=== PATIENT | female | born 2000 | race Two or more races ===

== ENCOUNTER 2019-04-10 22:34 | Observation (INO) | payer MEDICAID ==
[~2019-04-10] VITALS: Ht 157.5 cm; Wt 80.7 kg
[2019-04-11] MEDS ORDERED: PREN27TA7 OR (15:08)
== END 2019-04-11 01:28 | disposition home or self-care (01) | DRG 566 ==
LOC: LDRP 22:34
PROVIDERS: ADMIT Obstetrics & Gynecology; ATTEND Obstetrics & Gynecology
DX: O62.9 Abnormality of forces of labor, unspecified (principal); Z3A.38 38 weeks gestation of pregnancy
CPT/HCPCS: 59025; 81002; G0378

== ENCOUNTER 2019-04-11 14:16 | Inpatient (IN) | payer MEDICAID ==
[~2019-04-11] VITALS: Ht 157.5 cm; Wt 80.7 kg
[2019-04-11] MEDS ORDERED: LACT. RINGERS/OXYTOCIN 20UNITS 1,000 ML IV SCH ×2 (15:00)
[2019-04-11] MEDS ORDERED: WITCH HAZEL-GLYCERIN PAD TOP PRN (15:00)
[2019-04-11] MEDS ORDERED: NALBUPHINE HCL 10 MG/1ml INJECTION IV PRN (15:00)
[2019-04-11] MEDS ORDERED: DERMOPLAST 60ML BOTTLE TOP PRN (15:00)
[2019-04-11] MEDS ORDERED: TERBUTALINE SULFATE 1 MG/ML 1ML VIAL SC PRN (15:00)
[2019-04-11] MEDS ORDERED: METHYLERGONOVINE MALEATE 0.2 MG/ML AMP IM PRN (15:00)
[2019-04-11] MEDS ORDERED: LACTATED RINGER'S 1,000 ML IV SCH (15:00)
[2019-04-11] MEDS ORDERED: PHISODERM TOP SOLN 240ML BTL TOP PRN (15:00)
[2019-04-11] MEDS ORDERED: CARBOPROST TROMETHAMINE 250 MCG/1ML VIAL IM PRN (15:00)
[2019-04-11] MEDS ORDERED: LIDOCAINE 2%HCL (LOCAL ANESTH.) INJ 20ML MDV ID PRN (15:00)
[2019-04-11] MEDS ORDERED: PREN27TA7 OR (15:08)
[2019-04-11 15:43] LABS: Eosinophils # (auto) 0 uL; Monocytes # (auto) 0.9 uL
[2019-04-11 15:44] LABS: Urine Amorphous Crystal FEW /hpf (None Seen); Urine Bacteria FEW /hpf (None Seen); Urine Blood Negative /uL (Negative); Urine Mucus FEW (None Seen); Urine WBC 1 /hpf (0 - 5)
[2019-04-11 15:45] LABS: Basophils # (auto) 0.1 uL; Basophils % (auto) 0.6 % (0.0-2.0); Eosinophils % (auto) 0.1 % (0.0-7.0); Hematocrit 34.2 % (36.0-46.0); Lymphocytes # (auto) 1.6 uL; Lymphocytes % (auto) 8.7 % (10.0-50.0); Mean Corpuscular Hemoglobin 26.3 pg (28.0-32.0); Mean Corpuscular Hgb Conc. 32.3 g/dL (32.0-36.0); Mean Corpuscular Volume 81.3 fL (80.0-100.0); Monocytes % (auto) 4.6 % (0.0-12.0); Neutrophils # (auto) 15.8 uL; Platelet Count (auto) 336 10^3/uL (140-450); Red Cell Distribution Width 15.3 % (11.8-14.3); White Blood Cell 18.4 10^3/uL (4.4-10.8)
[2019-04-11 15:55] LABS: INR 0.88 (0.9-1.15); Partial Thromboplastin Time 28.1 sec (23.78-33.04); Prothrombin Time 9.5 sec (9.27-12.13)
[2019-04-11 15:58] LABS: Albumin 2.8 g/dL (3.4-5.0); BUN/Creatinine Ratio 9.4; Calcium 8.7 mg/dL (8.5-10.1)
[2019-04-11 16:01] LABS: Bilirubin, Total 0.2 mg/dL (0.2-1.0); Total Protein 7.7 g/dL (6.4-8.2)
[2019-04-11] MEDS ORDERED: PROMETHAZINE HCL 25 MG/ML 1ML IV PRN (16:15)
[2019-04-11] MEDS ORDERED: LACT. RINGERS/OXYTOCIN 20UNITS 500 ML IV ONE (21:40)
[2019-04-11] MEDS ORDERED: ACETAMINOPHEN 325 MG TAB PO PRN (21:45)
--- NOTE | 2019-04-11 21:50 | NUR ---
Ambulation: Patient OOB with standby assistance by RN. Patient ambulated to bathroom with steady gait. Consistent bleeding noted from vagina, 200ml measured in collection hat, no void at this time. Pericare provided, clean gown and peripad provided and bed linen changed. Upon ambulation back to bed patient reports dizziness. Patient back to bed with RN assistance, will continue to monitor. Addendum: 04/11/19 at 7003 by TYLER LORD RN note inserted at incorrect time. Correct time 2250.
[2019-04-11 23:10] VITALS: BP 105/54
[2019-04-11 23:43] VITALS: BP 109/53
[2019-04-11 23:49] VITALS: BP 110/54
--- NOTE | 2019-04-11 23:50 | NUR ---
Patient OOB to bathroom with assistance of RN. No report of dizziness. Pericare teaching re-enforced, no excessive vaginal bleeding noted. Peripad weighed, contained 20mL blood. Patient ambulates back to bed with steady gait, no distress noted. Will continue care.
[2019-04-12] VITALS (8 sets, daily range): BP systolic 96–114; BP diastolic 50–60
--- NOTE | 2019-04-12 00:50 | NUR ---
Total elapsed time since last void 6 hrs. Patient ambulates to bathroom with RN standby. Patient unable to void. Sterile straight cath performed with return of 1000mL clear yellow urine. Patient tolerated well.
--- NOTE | 2019-04-12 02:10 | NUR ---
Dr. Castano calls unit, SBAR given, VS reviewed. Orders received to continue current plan of care and for repeat CBC at 0600. Will continue care.
[2019-04-12 06:19] LABS: Basophils # (auto) 0 uL; Basophils % (auto) 0.1 % (0.0-2.0); Eosinophils # (auto) 0 uL; Hematocrit 23.9 % (36.0-46.0); Hemoglobin 7.9 g/dL (12.2-16.2); Lymphocytes # (auto) 2.3 uL; Lymphocytes % (auto) 12.9 % (10.0-50.0); Mean Corpuscular Hemoglobin 26.6 pg (28.0-32.0); Mean Corpuscular Volume 80.5 fL (80.0-100.0); Monocytes # (auto) 1.3 uL; Neutrophils # (auto) 14.5 uL; Platelet Count (auto) 277 10^3/uL (140-450); Red Blood Cells 2.96 10^6/uL (4.0-5.20); Red Cell Distribution Width 14.8 % (11.8-14.3); White Blood Cell 18.2 10^3/uL (4.4-10.8)
--- NOTE | 2019-04-12 06:55 | NUR ---
dr kingston at nurses station reprot given on the pt with HGB 7.9 orders received for iron and prescription to go home with. orders into be implementation.
[2019-04-12] MEDS: FERROUS SULFATE 325 MG TAB PO SCH (09:47)
[2019-04-12] MEDS: DOCUSATE CALCIUM 240 MG CAP PO SCH (09:47)
--- NOTE | 2019-04-12 09:50 | NUR ---
Teaching: Reviewed information in [employer] booklet with patient. Discussed benefits of and risks associated with not . Discussed different positions, proper latch, feeding cues, and baby-led . latched on, bonding well. . All questions and concerns addressed at this time. Patient verbalized understanding of information.
[2019-04-12] MEDS: IBUPROFEN 600 MG TAB PO PRN (17:04)
[2019-04-13 02:44] VITALS: BP 99/49
[2019-04-13] MEDS: IBUPROFEN 600 MG TAB PO PRN ×2 (02:49→10:27)
[2019-04-13] MEDS: FERROUS SULFATE 325 MG TAB PO SCH ×2 (02:56→10:26)
[2019-04-13 06:45] VITALS: BP 106/50
--- NOTE | 2019-04-13 10:00 | NUR ---
Discharge: Discharge instructions given as ordered. Pt encouraged to follow up with [facility] as instructed. All questions and concerns addressed. Patient verbalized understanding. Medication reconciliation completed and copy given to patient. Patient encouraged to prepare to depart unit.
[2019-04-13] MEDS: DOCUSATE CALCIUM 240 MG CAP PO SCH (10:26)
[2019-04-13 11:00] VITALS: BP 103/52
--- NOTE | 2019-04-13 12:45 | NUR ---
Discharge: Patient taken to vehicle via wheelchair with all personal belongings, accompanied by staff and family member. No distress noted at time of departure, no adverse changes in status since initial assessment.
[2019-04-14 12:42] LABS: RPR Non Reactive (Non Reactive)
== END 2019-04-13 12:45 | disposition home or self-care (01) | DRG 560 ==
LOC: LDRP 14:16 → OBSVTOIN 15:00 → LDRP 15:06
PROVIDERS: ADMIT Obstetrics & Gynecology; ATTEND Obstetrics & Gynecology
PROC: 10E0XZZ Delivery of Products of Conception, External Approach (ICD-10-PCS; principal; 2019-04-11)
PROC: 0KQM0ZZ Repair Perineum Muscle, Open Approach (ICD-10-PCS; 2019-04-11)
PROC: 0W8NXZZ Division of Female Perineum, External Approach (ICD-10-PCS; 2019-04-11)
DX: O70.1 Second degree perineal laceration during delivery (principal); Z37.0 Single live birth; Z3A.38 38 weeks gestation of pregnancy
CPT/HCPCS: 36415; 59025; 59409; 80053; 81001; 81002; 85025; 85610; 85730; 86592; 86850; 86900; 86901; 96361; 96365; 96366; 96375; G0378; J2590

== ENCOUNTER 2023-05-30 08:58 | Emergency (ER) | payer MEDICAID, OTHER ==
[~2023-05-30] VITALS: Ht 157.5 cm; Wt 87.7 kg
[~2023-05-30 08:58] MED LIST: PREN27TA7 OR
[2023-05-30 09:20] VITALS: BP 116/58
[2023-05-30 09:42] LABS: Urine Bacteria FEW /hpf (None Seen); Urine Blood 1+ /uL (Negative); Urine Budding Yeast FEW /hpf (None Seen); Urine Specific Gravity 1.022 (1.001-1.035); Urine WBC 108 /hpf (0 - 5)
[2023-05-30] MEDS ORDERED: PHENAZOPYRIDINE HCL 100 MG TAB PO ONE (10:00)
[2023-05-30] MEDS ORDERED: cefTRIAXone SOD 1,000 MG VL IM ONE (10:00)
[2023-05-30] MEDS ORDERED: BACDST PO (10:07)
[2023-05-30] MEDS ORDERED: PHEN-922 PO (10:07)
== END 2023-05-30 10:16 | disposition home or self-care (01) ==
LOC: EEVIPCON 08:58 → ER 08:58
DX: N39.0 Urinary tract infection, site not specified (principal); Z32.02 Encounter for pregnancy test, result negative
CPT/HCPCS: 81001; 81025; 96372; 99283; J0696